=== PATIENT | male | born 1990 | race Caucasian/White ===

== ENCOUNTER 2017-12-05 08:37 | Day surgery (SDC) | payer MEDICAID ==
[~2017-12-05] VITALS: Ht 175.3 cm; Wt 59.0 kg
[~2017-12-05 08:37] MED LIST: ARIP5TAB4 PO; CARB100T7 PO; CHOL10002 PO; CLON-529 PO; DIVA500T7 PO; DOCUMENT DATE & TIME OF BETA-BLOCKER PO ONE; HYDR-3686 PO; LEVE500T77 PO; LORA10TA7 PO; OLAN10TA3 PO; PROP10TA10 PO; famotidine 20mg tablet PO ONE; meperidine/PF 50mg/ml syringe IV PRN; morphine 4 MG/ML inj SYRINge IV PRN; ondansetron/PF 4mg/2ml inj IV PRN; proCHLORperazine 10 MG/2 ml inj IV PRN; ringers solution, lacted 1,000 ML IV SCH
[2017-12-05] MEDS ORDERED: glycopyrrolate 0.2mg/ml inj ONE (09:15)
[2017-12-05] MEDS ORDERED: neostigmine methylsulfate 1 MG/ML 10ml vial ONE (09:15)
[2017-12-05] MEDS ORDERED: sevoflurane 250ml liquid IH ONE (09:15)
[2017-12-05 09:16] LABS: BASOPHILS # (AUTO) 0.1 X10'3 (0-0.2); BASOPHILS % (AUTO) 1.1 % (0-1); EOSINOPHILS # (AUTO) 0.2 X10'3 (0-0.9); EOSINOPHILS % (AUTO) 3.6 % (0-6); LYMPHOCYTES % (AUTO) 38.8 % (21-51); MEAN CORPUSCULAR HEMOGLOBIN 32.6 PG (27.0-31.0); MEAN CORPUSCULAR HGB CONC 35.4 % (33.0-36.5); MEAN CORPUSCULAR VOLUME 92.3 FL (78-98); MEAN PLATELET VOLUME 9.2 FL (7.4-10.4); MONOCYTES # (AUTO) 0.5 X10'3 (0-0.9); MONOCYTES % (AUTO) 10.2 % (2-12); NEUTROPHILS # (AUTO) 2.3 X10'3 (1.8-7.7); NEUTROPHILS % (AUTO) 46.3 % (42-75); PRE OP HEMATOCRIT 42.5 % (42.0-52.0); PRE OP PLATELET COUNT 189 X10'3 (140-440); RED BLOOD COUNT 4.61 X10'6 (4.70-6.10); RED CELL DISTRIBUTION WIDTH 12.9 % (11.5-14.5)
[2017-12-05] MEDS ORDERED: midazolam 2 mg/2 ml injection ONE (09:17)
[2017-12-05] MEDS ORDERED: propofol inj 20 ML IV ONE ×2 (09:18→13:57)
[2017-12-05] MEDS ORDERED: fentaNYL /PF 50mcg/ml 5ml ampule ONE (09:18)
[2017-12-05 09:36] LABS: ALANINE AMINOTRANSFERASE 25 U/L (12-78); ALBUMIN 3.8 G/DL (3.4-5.0); ALKALINE PHOSPHATASE 43 IU/L (46-116); ANION GAP 9 (8-16); ASPARTATE AMINO TRANSFERASE 13 U/L (10-37); BILIRUBIN,TOTAL 0.3 MG/DL (0.1-1.0); BLOOD UREA NITROGEN 16 MG/DL (7-18); BUN/CREATININE RATIO 20.5 (5.4-32.0); CALCIUM 9.1 MG/DL (8.5-10.1); CHLORIDE 105 MMOL/L (99-107); CREATININE 0.78 MG/DL (0.60-1.10); GLUCOSE 91 MG/DL (70-104); POTASSIUM 4.5 MMOL/L (3.5-5.1); SODIUM 142 MMOL/L (135-145); TOTAL CARBON DIOXIDE 27.8 MMOL/L (24-32); TOTAL PROTEIN 7.8 G/DL (6.4-8.2); eGFR > 90 ML/MIN
[2017-12-05] MEDS ORDERED: dexamethasone sod phosphate 4mg/ml inj. ONE (09:36)
[2017-12-05] MEDS ORDERED: ondansetron/PF 4mg/2ml inj ONE (09:36)
[2017-12-05] MEDS ORDERED: naloxone 0.4 mg/ml inj ONE (10:21)
[2017-12-05 10:27] VITALS: BP 147/98
[2017-12-05 10:37] VITALS: BP 105/56
[2017-12-05 10:47] VITALS: BP 141/91
[2017-12-05] MEDS ORDERED: fentaNYL/PF 50MCG/1 ML 2ML syringe ONE (13:03)
[2017-12-05] MEDS ORDERED: MIDAZolam 5mg/5ml vial ONE (13:04)
[2017-12-05] MEDS ORDERED: ROPIVAcaine 0.5% (5mg/ml) 30ml vial ONE (13:07)
[2017-12-05] MEDS ORDERED: LIDOcaine 1%/PF (10mg/ml) 5ml vial ONE (13:57)
== END 2017-12-05 10:57 | disposition home or self-care (01) ==
LOC: PAS 08:37
PROVIDERS: ATTEND Dentist
DX: K05.30 Chronic periodontitis, unspecified (principal); F84.0 Autistic disorder; F78 Other intellectual disabilities; G80.8 Other cerebral palsy; I10 Essential (primary) hypertension; Z88.0 Allergy status to penicillin; Z88.8 Allergy status to other drugs, medicaments and biological substances; Z79.899 Other long term (current) drug therapy
CPT/HCPCS: 36415; 41899; 80053; 85025; A6446; J1100; J2001; J2250; J2310; J2405; J2704; J2795; J3010; J7120; A7000; J2710; J3490